=== PATIENT | male | born 1995 | race Caucasian/White ===

== ENCOUNTER 2020-05-14 19:25 | Emergency (ER) | payer OTHER, SELFPAY ==
[~2020-05-14] VITALS: Ht 172.7 cm; Wt 99.8 kg
[2020-05-14 19:41] VITALS: BP 134/70
--- NOTE | 2020-05-14 19:45 | NUR ---
PT SEEN AND ASSESSED BY DOCTOR. NO INTERVENTION NEEDED.
[2020-05-14 19:51] VITALS: BP 134/70
--- NOTE | 2020-05-14 19:51 | NUR ---
PATIENT DISCHARGED WITH PAPERWORK. EDUCATED PT REGARDING D/C DIAGNOSIS AND INSTRUCTIONS. PT VERBALIZED UNDERSTANDING OF TEACHING. TOLD PT TO FOLLOW UP WITH PCP AND PROVIDED RESOURCES REGARDING COVID19. PATIENT AT STABLE CONDITION.
== END 2020-05-14 19:51 | disposition home or self-care (01) ==
LOC: MED 19:25 → EEVIPCON 19:25 → MED 19:51
DX: R06.02 Shortness of breath (principal); Z20.828 Contact with and (suspected) exposure to other viral communicable diseases
CPT/HCPCS: 99281; 99283